=== PATIENT | male | born 1980 | race Caucasian/White ===

== ENCOUNTER → 2016-10-24 | Outpatient (CLI) | payer BC ==
--- NOTE | 2016-10-24 14:15 | US ---
Ultrasound Testicular. History: Right scrotal pain. Findings: Right testicle measures 4.4 x 3.0 x 2.0 cm and the left testicle measures 4.4 x 2.9 x 1.8 c m. There is homogeneous appearance to both testicles and no evidence for mass. There is hyperemia of the right testicle. Normal blood flow of the left testicle. Both epididymides are normal in appearanc e. There is mild hydrocele on the right. No evidence for varicocele. Impression: Right orchitis. Mild right hydrocele. Otherwise unremarkable. Results called to Reyna Barry NP.
== END ==
LOC: FIMAGING 13:11
PROVIDERS: ATTEND Registered Nurse
DX: N45.2 Orchitis (principal); N43.2 Other hydrocele